=== PATIENT | male | born 1985 | race Caucasian/White ===

== ENCOUNTER 2019-05-15 14:51 | Inpatient (IN) | payer OTHER ==
[2019-05-15 15:28] VITALS: BMI 23.6
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
[2019-05-15] MEDS ORDERED: MAGNESIUM CITRATE 300 ML BOTTLE PO PRN (16:11)
[2019-05-15] MEDS ORDERED: hydrOXYzine PAMOATE 25 MG CAPSULE (FP) PO PRN (16:11)
[2019-05-15] MEDS ORDERED: METHOCARBAMOL 500 MG TABLET PO PRN (16:11)
[2019-05-15] MEDS ORDERED: chlordiazePOXIDE HCL 25 MG CAPSULE PO PRN (16:11)
[2019-05-15] MEDS ORDERED: IBUPROFEN 400 MG TABLET (FP) PO PRN (16:11)
[2019-05-15] MEDS ORDERED: MAGNESIUM HYDROX 2400MG/30ML ORAL SUSPENSION 30 ML CUP PO PRN (16:11)
[2019-05-15] MEDS ORDERED: MAG HYDROX/AL HYDROX/SIMETH 30 ML UNIT-DOSE CUP PO PRN (16:11)
[2019-05-15] MEDS ORDERED: cloNIDine HCL 0.1 MG TABLET PO PRN (16:11)
[2019-05-15] MEDS ORDERED: ACETAMINOPHEN 325 MG TABLET (FP) PO PRN ×2 (16:11)
[2019-05-15] MEDS ORDERED: BISMUTH SUBSALICYLATE 524 MG/30 ML UD PO PRN (16:11)
[2019-05-15] MEDS ORDERED: METHADONE HCL 10 MG TABLET (FOR DETOX USE ONLY) PO ONE (16:45)
[2019-05-15] MEDS: THIAMINE HCL 100 MG TABLET (FP) PO SCH (22:48)
[2019-05-15] MEDS: chlordiazePOXIDE HCL 25 MG CAPSULE PO SCH (22:48)
[2019-05-15] MEDS: levETIRAcetam 500 MG TABLET (FP) PO SCH (22:48)
[2019-05-15] MEDS: PHENYTOIN NA EXTENDED 100 MG CAPSULE (FP) PO SCH (22:48)
[2019-05-15] MEDS: AMOXICILLIN 500 MG CAPSULE (FP) PO SCH (22:53)
[2019-05-16] MEDS: chlordiazePOXIDE HCL 25 MG CAPSULE PO SCH ×4 (05:54→22:26)
[2019-05-16] MEDS: AMOXICILLIN 500 MG CAPSULE (FP) PO SCH ×3 (07:27→22:26)
[2019-05-16] MEDS: guaiFENesin 200 MG/10 ML 10 ML UNIT-DOSE CUPS PO PRN ×2 (07:30→17:53)
[2019-05-16] MEDS ORDERED: METHADONE HCL 5 MG TABLET (FOR DETOX USE ONLY) ONE (08:47)
[2019-05-16] MEDS ORDERED: METHADONE HCL 10 MG TABLET (FOR DETOX USE ONLY) ONE (08:47)
[2019-05-16 09:53] LABS: HEMATOCRIT 41.8 % (35.4-49); HEMOGLOBIN 13.3 GM/dL (11.7-16.9); MCH 28.7 pg (25.7-33.7); MCHC 31.9 g/dl (32.0-35.9); MEAN CELL VOLUME 90.2 fl (80-96); MEAN PLT VOLUME 11.2 fl (7.5-11.1); PLATELET COUNT 183 K/MM3 (134-434); RBC 4.63 M/mm3 (4.00-5.60); WHITE BLOOD COUNT 6.9 K/mm3 (4.0-10.0)
[2019-05-16] MEDS ORDERED: METHADONE (DETOX) 20 MG, METHADONE (DETOX) 5 MG PO ONE (10:00)
[2019-05-16 10:11] LABS: ALBUMIN 3.2 g/dl (3.4-5.0); BILIRUBIN,TOTAL 0.3 mg/dL (0.2-1); BLOOD UREA NITROGEN 12.8 mg/dL (7-18); CALCIUM 9.2 mg/dL (8.5-10.1); POTASSIUM 3.9 mmol/L (3.5-5.1); TOT PROT 6.4 g/dl (6.4-8.2)
[2019-05-16] MEDS: PRENATAL VITAMINS W/ FOLIC ACID TABLET (FP) PO SCH (10:23)
[2019-05-16] MEDS: PHENYTOIN NA EXTENDED 100 MG CAPSULE (FP) PO SCH ×2 (10:24→22:26)
[2019-05-16] MEDS: levETIRAcetam 500 MG TABLET (FP) PO SCH ×2 (10:24→22:26)
--- NOTE | 2019-05-16 12:21 | PN ---
[facility] CIWA - CIWA Score Nausea/Vomitin-Mild Nausea/No Vomiting Muscle Tremors: 3 Anxiety: 3 Agitation: 2 Paroxysmal Sweats: 1-Minimal Palms Moist Orientation: 0-Oriented Tacttile Disturbances: 1-Very Mild Itch/Numbness Auditory Disturbances: 0-None Visual Disturbances: 0-None Headache: 1-Very Mild CIWA-Ar Total Score: 12 BHS COWS - Scale Resting Pulse: 0= [place] 80 or Below Sweatin= Chills/Flushing Restless Observation: 0= Sits Still Pupil Size: 0= Normal to Room Light Bone or Joint Aches: 2= Severe Diffuse Aches Runny Nose/ Eye Tearin= Nasal Congestion GI Upset > 30mins: 2= Nausea/Diarrhea (no diarrhea) Tremor Observation of Outstretched Hands: 2= Slight Tremor Visible Yawning Observation: 2= >3x During Session Anxiety or Irritability: 2=Irritable/Anxious Goose Flesh Skin: 0=Smooth Skin COWS Score: 12 [facility] Progress Note (SOAP) Subjective: 34 years old male admitted on 05/15/19 for alcohol and opiate withdrawal sx management treated with librium and methadone detox regimen history of seizure treated wth keppra and dilantin dilantin serum level within acceptable range c/o tooth crack left lower tooth crack no bleeding mild gum swelling continue amoxicillin lidocain oral solution discuss oral hygiene Objective: 05/16/19 12:43 Vital Signs Temperature 96.6 F L 05/16/19 09:19 Pulse Rate 76 05/16/19 09:19 Respiratory Rate 16 05/16/19 09:19 Blood Pressure 106/64 05/16/19 09:19 O2 Sat by Pulse Oximetry (%) Laboratory Last Values WBC 6.9 K/mm3 (4.0-10.0) 05/16/19 08:20 RBC 4.63 M/mm3 (4.00-5.60) 05/16/19 08:20 Hgb 13.3 GM/dL (11.7-16.9) 05/16/19 08:20 Hct 41.8 % (35.4-49) 05/16/19 08:20 MCV 90.2 fl (80-96) 05/16/19 08:20 MCH 28.7 pg (25.7-33.7) 05/16/19 08:20 MCHC 31.9 g/dl (32.0-35.9) L 05/16/19 08:20 RDW 15.0 % (11.9-15.9) 05/16/19 08:20 Plt Count 183 K/MM3 (134-434) 05/16/19 08:20 MPV 11.2 fl (7.5-11.1) H D 05/16/19 08:20 Sodium 139 mmol/L (136-145) 05/16/19 08:20 Potassium 3.9 mmol/L (3.5-5.1) 05/16/19 08:20 Chloride 105 mmol/L (98-107) 05/16/19 08:20 Carbon Dioxide 28 mmol/L (21-32) 05/16/19 08:20 Anion Gap 7 MMOL/L (8-16) L 05/16/19 08:20 BUN 12.8 mg/dL (7-18) 05/16/19 08:20 Creatinine 1.0 mg/dL (0.55-1.3) 05/16/19 08:20 Est GFR (CKD-EPI)AfAm 114.91 05/16/19 08:20 Est GFR (CKD-EPI)NonAf 99.15 05/16/19 08:20 POC Glucometer 107 UNITS (80-120) 05/16/19 05:56 Random Glucose 95 mg/dL (74-106) 05/16/19 08:20 Calcium 9.2 mg/dL (8.5-10.1) 05/16/19 08:20 Total Bilirubin 0.3 mg/dL (0.2-1) 05/16/19 08:20 AST 24 U/L (15-37) 05/16/19 08:20 ALT 48 U/L (13-61) 05/16/19 08:20 Alkaline Phosphatase 70 U/L (45-117) 05/16/19 08:20 Total Protein 6.4 g/dl (6.4-8.2) 05/16/19 08:20 Albumin 3.2 g/dl (3.4-5.0) L 05/16/19 08:20 Phenytoin 0.6 05/16/19 08:20 RPR Titer Nonreactive (NONREACTIVE) 05/16/19 08:20 lab noted Assessment: 05/16/19 12:43 alcohol and opiate withdrawal sx Plan: continue librium and methadone detox regimen
[2019-05-16] MEDS ORDERED: LIDOCAINE VISCOUS 2% ORAL/TOP 20 ML UNIT-DOSE CUP MM PRN (12:40)
[2019-05-16] MEDS: MENTHOL/PHENOL 1 EACH UD MM PRN (17:54)
[2019-05-16] MEDS: THIAMINE HCL 100 MG TABLET (FP) PO SCH (22:26)
[2019-05-17] MEDS: chlordiazePOXIDE HCL 25 MG CAPSULE PO SCH ×4 (05:41→23:16)
[2019-05-17] MEDS: AMOXICILLIN 500 MG CAPSULE (FP) PO SCH ×3 (05:42→23:16)
[2019-05-17] MEDS ORDERED: METHADONE HCL 10 MG TABLET (FOR DETOX USE ONLY) PO ONE (10:00)
[2019-05-17] MEDS: PRENATAL VITAMINS W/ FOLIC ACID TABLET (FP) PO SCH (10:34)
[2019-05-17] MEDS: PHENYTOIN NA EXTENDED 100 MG CAPSULE (FP) PO SCH ×2 (10:34→23:16)
[2019-05-17] MEDS: levETIRAcetam 500 MG TABLET (FP) PO SCH ×2 (10:34→23:16)
[2019-05-17] MEDS: guaiFENesin 200 MG/10 ML 10 ML UNIT-DOSE CUPS PO PRN (10:36)
--- NOTE | 2019-05-17 13:18 | PN ---
[facility] CIWA - CIWA Score Nausea/Vomitin-Mild Nausea/No Vomiting Muscle Tremors: 2 Anxiety: 2 Agitation: 2 Paroxysmal Sweats: 2 Orientation: 1-Uncertain about Date Tacttile Disturbances: 0-None Auditory Disturbances: 0-None Visual Disturbances: 0-None Headache: 0-None Present CIWA-Ar Total Score: 10 BHS COWS - Scale Resting Pulse: 0= [place] 80 or Below Sweatin= Chills/Flushing Restless Observation: 0= Sits Still Pupil Size: 0= Normal to Room Light Bone or Joint Aches: 1= Mild Discomfort Runny Nose/ Eye Tearin= Nasal Congestion GI Upset > 30mins: 2= Nausea/Diarrhea (no diarrhea) Tremor Observation of Outstretched Hands: 2= Slight Tremor Visible Yawning Observation: 1= 1-2x During Session Anxiety or Irritability: 2=Irritable/Anxious Goose Flesh Skin: 0=Smooth Skin COWS Score: 10 [facility] Progress Note (SOAP) Subjective: 34 years old male admitted on 05/15/19 for alcohol and opiate withdrawal sx management treated with librium and methadone detox regimen less tooth ache continue amoxicilline no trouble chewing food nor swallowing food Objective: 05/17/19 13:16 Vital Signs Temperature 97.2 F L 05/17/19 09:14 Pulse Rate 69 05/17/19 09:14 Respiratory Rate 18 05/17/19 09:14 Blood Pressure 103/57 L 05/17/19 09:14 O2 Sat by Pulse Oximetry (%) Laboratory Last Values WBC 6.9 K/mm3 (4.0-10.0) 05/16/19 08:20 RBC 4.63 M/mm3 (4.00-5.60) 05/16/19 08:20 Hgb 13.3 GM/dL (11.7-16.9) 05/16/19 08:20 Hct 41.8 % (35.4-49) 05/16/19 08:20 MCV 90.2 fl (80-96) 05/16/19 08:20 MCH 28.7 pg (25.7-33.7) 05/16/19 08:20 MCHC 31.9 g/dl (32.0-35.9) L 05/16/19 08:20 RDW 15.0 % (11.9-15.9) 05/16/19 08:20 Plt Count 183 K/MM3 (134-434) 05/16/19 08:20 MPV 11.2 fl (7.5-11.1) H D 05/16/19 08:20 Sodium 139 mmol/L (136-145) 05/16/19 08:20 Potassium 3.9 mmol/L (3.5-5.1) 05/16/19 08:20 Chloride 105 mmol/L (98-107) 05/16/19 08:20 Carbon Dioxide 28 mmol/L (21-32) 05/16/19 08:20 Anion Gap 7 MMOL/L (8-16) L 05/16/19 08:20 BUN 12.8 mg/dL (7-18) 05/16/19 08:20 Creatinine 1.0 mg/dL (0.55-1.3) 05/16/19 08:20 Est GFR (CKD-EPI)AfAm 114.91 05/16/19 08:20 Est GFR (CKD-EPI)NonAf 99.15 05/16/19 08:20 POC Glucometer 110 UNITS (80-120) 05/16/19 16:37 Random Glucose 95 mg/dL (74-106) 05/16/19 08:20 Calcium 9.2 mg/dL (8.5-10.1) 05/16/19 08:20 Total Bilirubin 0.3 mg/dL (0.2-1) 05/16/19 08:20 AST 24 U/L (15-37) 05/16/19 08:20 ALT 48 U/L (13-61) 05/16/19 08:20 Alkaline Phosphatase 70 U/L (45-117) 05/16/19 08:20 Total Protein 6.4 g/dl (6.4-8.2) 05/16/19 08:20 Albumin 3.2 g/dl (3.4-5.0) L 05/16/19 08:20 Phenytoin 0.6 05/16/19 08:20 RPR Titer Nonreactive (NONREACTIVE) 05/16/19 08:20 lab noted Assessment: 05/17/19 13:17 alcohol and opiate withdrawal sx Plan: continue librium and methadone detox regimen
[2019-05-17] MEDS: THIAMINE HCL 100 MG TABLET (FP) PO SCH (23:16)
[2019-05-17] MEDS: MELATONIN 5 MG TABLETS PO PRN (23:18)
[2019-05-18] MEDS ORDERED: chlordiazePOXIDE HCL 10 MG CAPSULE PO PRN
[2019-05-18] MEDS: guaiFENesin 200 MG/10 ML 10 ML UNIT-DOSE CUPS PO PRN (05:58)
[2019-05-18] MEDS: chlordiazePOXIDE HCL 10 MG CAPSULE PO SCH ×4 (05:58→22:33)
[2019-05-18] MEDS: AMOXICILLIN 500 MG CAPSULE (FP) PO SCH ×3 (05:58→22:33)
[2019-05-18] MEDS ORDERED: METHADONE (DETOX) 10 MG, METHADONE (DETOX) 5 MG PO ONE (10:00)
[2019-05-18] MEDS ORDERED: METHADONE HCL 5 MG TABLET (FOR DETOX USE ONLY) ONE (10:01)
[2019-05-18] MEDS ORDERED: METHADONE HCL 10 MG TABLET (FOR DETOX USE ONLY) ONE (10:01)
[2019-05-18] MEDS: levETIRAcetam 500 MG TABLET (FP) PO SCH ×2 (10:18→22:33)
[2019-05-18] MEDS: PRENATAL VITAMINS W/ FOLIC ACID TABLET (FP) PO SCH (10:19)
[2019-05-18] MEDS: PHENYTOIN NA EXTENDED 100 MG CAPSULE (FP) PO SCH ×2 (10:19→22:33)
[2019-05-18] MEDS: MENTHOL/PHENOL 1 EACH UD MM PRN (10:21)
--- NOTE | 2019-05-18 12:29 | PN ---
S CIWA - CIWA Score Nausea/Vomitin-No Nausea/No Vomiting Muscle Tremors: 2 Anxiety: 2 Agitation: 2 Paroxysmal Sweats: No Perspiration Orientation: 0-Oriented Tacttile Disturbances: 0-None Auditory Disturbances: 0-None Visual Disturbances: 0-None Headache: 0-None Present CIWA-Ar Total Score: 6 BHS COWS - Scale Resting Pulse: 1= [place] 81-100 Sweatin= Chills/Flushing Restless Observation: 0= Sits Still Pupil Size: 0= Normal to Room Light Bone or Joint Aches: 1= Mild Discomfort Runny Nose/ Eye Tearin= None GI Upset > 30mins: 1= Stomach Cramp Tremor Observation of Outstretched Hands: 1= Tremor [place], Not Seen Yawning Observation: 0= None Anxiety or Irritability: 1=Feels Anxious/Irritable Goose Flesh Skin: 0=Smooth Skin COWS Score: 6 S Progress Note (SOAP) Subjective: 34 years old male admitted on 05/15/19 for alcohol and opiate withdrawal sx management treated with librium and methadone detox regimen long history of seizure treated with dilantin and keppra dilantin level within acceptable level Objective: 05/18/19 12:28 Vital Signs Temperature 97.5 F L 05/18/19 09:10 Pulse Rate 83 05/18/19 09:10 Respiratory Rate 18 05/18/19 09:10 Blood Pressure 101/56 L 05/18/19 09:10 O2 Sat by Pulse Oximetry (%) Laboratory Last Values WBC 6.9 K/mm3 (4.0-10.0) 05/16/19 08:20 RBC 4.63 M/mm3 (4.00-5.60) 05/16/19 08:20 Hgb 13.3 GM/dL (11.7-16.9) 05/16/19 08:20 Hct 41.8 % (35.4-49) 05/16/19 08:20 MCV 90.2 fl (80-96) 05/16/19 08:20 MCH 28.7 pg (25.7-33.7) 05/16/19 08:20 MCHC 31.9 g/dl (32.0-35.9) L 05/16/19 08:20 RDW 15.0 % (11.9-15.9) 05/16/19 08:20 Plt Count 183 K/MM3 (134-434) 05/16/19 08:20 MPV 11.2 fl (7.5-11.1) H D 05/16/19 08:20 Sodium 139 mmol/L (136-145) 05/16/19 08:20 Potassium 3.9 mmol/L (3.5-5.1) 05/16/19 08:20 Chloride 105 mmol/L (98-107) 05/16/19 08:20 Carbon Dioxide 28 mmol/L (21-32) 05/16/19 08:20 Anion Gap 7 MMOL/L (8-16) L 05/16/19 08:20 BUN 12.8 mg/dL (7-18) 05/16/19 08:20 Creatinine 1.0 mg/dL (0.55-1.3) 05/16/19 08:20 Est GFR (CKD-EPI)AfAm 114.91 05/16/19 08:20 Est GFR (CKD-EPI)NonAf 99.15 05/16/19 08:20 POC Glucometer 111 UNITS (80-120) 05/18/19 06:35 Random Glucose 95 mg/dL (74-106) 05/16/19 08:20 Calcium 9.2 mg/dL (8.5-10.1) 05/16/19 08:20 Total Bilirubin 0.3 mg/dL (0.2-1) 05/16/19 08:20 AST 24 U/L (15-37) 05/16/19 08:20 ALT 48 U/L (13-61) 05/16/19 08:20 Alkaline Phosphatase 70 U/L (45-117) 05/16/19 08:20 Total Protein 6.4 g/dl (6.4-8.2) 05/16/19 08:20 Albumin 3.2 g/dl (3.4-5.0) L 05/16/19 08:20 Phenytoin 0.6 05/16/19 08:20 Levetiracetam 4.9 MCG/ML (10.0-40.0) L 05/16/19 08:20 RPR Titer Nonreactive (NONREACTIVE) 05/16/19 08:20 lab noted Assessment: 05/18/19 12:28 alcohol and opiate withdrawal sx Plan: continue librium and methadone detox regimen
[2019-05-18] MEDS: THIAMINE HCL 100 MG TABLET (FP) PO SCH (22:33)
[2019-05-18] MEDS: MELATONIN 5 MG TABLETS PO PRN (22:34)
[2019-05-19] MEDS ORDERED: chlordiazePOXIDE HCL 10 MG CAPSULE PO SCH (05:00)
[2019-05-19] MEDS: AMOXICILLIN 500 MG CAPSULE (FP) PO SCH (05:54)
[2019-05-19 09:20] VITALS: BP 95/59; PULSE 84; TEMP 97.3
[2019-05-19] MEDS ORDERED: METHADONE HCL 10 MG TABLET (FOR DETOX USE ONLY) PO ONE (10:00)
[2019-05-19] MEDS: PHENYTOIN NA EXTENDED 100 MG CAPSULE (FP) PO SCH (10:10)
[2019-05-19] MEDS: PRENATAL VITAMINS W/ FOLIC ACID TABLET (FP) PO SCH (10:10)
[2019-05-19] MEDS: levETIRAcetam 500 MG TABLET (FP) PO SCH (10:11)
--- NOTE | 2019-05-19 12:28 | DS ---
[facility] Detox Discharge Summary Admission Date: 05/15/19 Discharge Date: 05/19/19 - History Present History: Alcohol Dependence, Opioid Dependence Additional Comments: 34 years old male admitted on 05/15/19 for alcohol and opiate withdrawal sx management treated with librium and methadone detox regimen patient tolerate well patient is alert oriented x 3 cardiac S1S2 regular rate rhythm respiratory clear lung bilaterally on auscultation abdomen soft no rebound tenderness - Physical Exam Results Vital Signs: Vital Signs Temperature 97.3 F L 05/19/19 09:19 Pulse Rate 84 05/19/19 09:19 Respiratory Rate 16 05/19/19 09:19 Blood Pressure 95/59 L 05/19/19 09:19 O2 Sat by Pulse Oximetry (%) Pertinent Admission Physical Exam Findings: alcohol and opiate withdrawal sx Laboratory Last Values WBC 6.9 K/mm3 (4.0-10.0) 05/16/19 08:20 RBC 4.63 M/mm3 (4.00-5.60) 05/16/19 08:20 Hgb 13.3 GM/dL (11.7-16.9) 05/16/19 08:20 Hct 41.8 % (35.4-49) 05/16/19 08:20 MCV 90.2 fl (80-96) 05/16/19 08:20 MCH 28.7 pg (25.7-33.7) 05/16/19 08:20 MCHC 31.9 g/dl (32.0-35.9) L 05/16/19 08:20 RDW 15.0 % (11.9-15.9) 05/16/19 08:20 Plt Count 183 K/MM3 (134-434) 05/16/19 08:20 MPV 11.2 fl (7.5-11.1) H D 05/16/19 08:20 Sodium 139 mmol/L (136-145) 05/16/19 08:20 Potassium 3.9 mmol/L (3.5-5.1) 05/16/19 08:20 Chloride 105 mmol/L (98-107) 05/16/19 08:20 Carbon Dioxide 28 mmol/L (21-32) 05/16/19 08:20 Anion Gap 7 MMOL/L (8-16) L 05/16/19 08:20 BUN 12.8 mg/dL (7-18) 05/16/19 08:20 Creatinine 1.0 mg/dL (0.55-1.3) 05/16/19 08:20 Est GFR (CKD-EPI)AfAm 114.91 05/16/19 08:20 Est GFR (CKD-EPI)NonAf 99.15 05/16/19 08:20 POC Glucometer 99 UNITS (80-120) 05/18/19 16:22 Random Glucose 95 mg/dL (74-106) 05/16/19 08:20 Calcium 9.2 mg/dL (8.5-10.1) 05/16/19 08:20 Total Bilirubin 0.3 mg/dL (0.2-1) 05/16/19 08:20 AST 24 U/L (15-37) 05/16/19 08:20 ALT 48 U/L (13-61) 05/16/19 08:20 Alkaline Phosphatase 70 U/L (45-117) 05/16/19 08:20 Total Protein 6.4 g/dl (6.4-8.2) 05/16/19 08:20 Albumin 3.2 g/dl (3.4-5.0) L 05/16/19 08:20 Phenytoin 0.6 05/16/19 08:20 Levetiracetam 4.9 MCG/ML (10.0-40.0) L 05/16/19 08:20 RPR Titer Nonreactive (NONREACTIVE) 05/16/19 08:20 lab noted - Treatment Hospital Course: Detox Protocol Followed, Detoxed Safely, Responded well, Discharged Condition Good, Rehab Referral Accepted Patient has Accepted a Rehab Referral to: medication assisted treatment program - Medication Discharge Medications: Ambulatory Orders Lamotrigine [Lamictal] 25 mg PO DAILY 03/01/18 Gabapentin 300 mg PO TID 03/04/18 Quetiapine Fumarate [Seroquel -] 100 mg PO HS #30 tablet 03/05/18 traZODone HCL [Desyrel -] 100 mg PO HS #30 tablet 03/05/18 Naloxone HCl [Narcan] 4 mg NS ASDIR PRN #1 spray 05/16/19 Phenytoin Na Extended [Dilantin -] 100 mg PO BID #60 capsule 05/19/19 levETIRAcetam [Keppra -] 500 mg PO BID #60 tablet 05/19/19 - Diagnosis (1) DM type 2 (diabetes mellitus, type 2) Status: Chronic Qualifiers: Diabetes mellitus joint terminal attack controller insulin use: unspecified senior living insulin use status Diabetes mellitus complication status: without complication Qualified Code(s): E11.9 - Type 2 diabetes mellitus without complications (2) Nicotine dependence with withdrawal Status: Acute Qualifiers: Nicotine product type: cigarettes Qualified Code(s): F17.213 - Nicotine dependence, cigarettes, with withdrawal (3) Alcohol dependence with uncomplicated withdrawal Status: Acute (4) Opioid dependence with withdrawal Status: Acute - AMA Did Patient Leave Against Medical Advice: No CIWA Score - CIWA Score Nausea/Vomitin-No Nausea/No Vomiting Muscle Tremors: 1-None Visible, but [place] Anxiety: 1-Mildly Anxious Agitation: 1-Slight > Activity Paroxysmal Sweats: No Perspiration Orientation: 0-Oriented Tacttile Disturbances: 0-None Auditory Disturbances: 0-None Visual Disturbances: 0-None Headache: 0-None Present CIWA-Ar Total Score: 3 COWS (PN) - Opiate Withdrawal Resting Pulse: 1= [place] 81-100 Sweatin= Chills/Flushing Restless Observation: 0= Sits Still Pupil Size: 0= Normal to Room Light Bone or Joint Aches: 0= None Runny Nose/ Eye Tearin= None GI Upset > 30mins: 0= None Tremor Observation of Outstretched Hands: 1= Tremor [place], Not Seen Yawning Observation: 0= None Anxiety or Irritability: 1=Feels Anxious/Irritable Goose Flesh Skin: 0=Smooth Skin COWS Score: 4
--- NOTE | 2019-05-19 13:08 | HP ---
[facility] Rehab Assess/Revision - Admission History Admitted to Rehab from: [facility] Date of Admission to Rehab: 05/19/19 - Vital signs Vital Signs: Vital Signs Period Temp Pulse Resp BP Sys/Lopez Pulse Ox Last 24 Hr 97 F-98.5 F 66-90 16-18 95-128/57-82 - Findings Detox History & Physical reviewed: Yes Concur with findings: Yes Comments/Additional Findings: trasnferred from detox to rehab admission as per protocol Inpatient Rehab Admission - Rehab Decision to Admit Inpatient rehab admission?: Yes - Initial Determination Are CD services needed?: Yes Free of communicable disease: Yes Not in need of hospitalization: Yes - Rehab Admission Criteria Previous failed treatment: Yes Poor recovery environment: Yes Comorbidities: Yes Lacks judgement: Yes Patient is meeting Inpatient Rehab admission criteria:: Yes
[2019-05-20] MEDS ORDERED: chlordiazePOXIDE HCL 10 MG CAPSULE PO ONE (05:00)
[2019-05-20] MEDS ORDERED: METHADONE HCL 5 MG TABLET (FOR DETOX USE ONLY) PO ONE (06:00)
== END 2019-05-19 11:47 | disposition home or self-care (01) | DRG 897 ==
LOC: YASAS 14:51 → Y3N 16:36
PROVIDERS: ADMIT Allergy & Immunology; ATTEND Allergy & Immunology
PROC: HZ2ZZZZ Detoxification Services for Substance Abuse Treatment (ICD-10-PCS; principal; 2019-05-15)
DX: F10.230 Alcohol dependence with withdrawal, uncomplicated (principal); F14.20 Cocaine dependence, uncomplicated; F11.23 Opioid dependence with withdrawal; F17.213 Nicotine dependence, cigarettes, with withdrawal; E11.9 Type 2 diabetes mellitus without complications; Z79.4 Long term (current) use of insulin; G40.909 Epilepsy, unspecified, not intractable, without status epilepticus; G47.00 Insomnia, unspecified; J20.9 Acute bronchitis, unspecified; B18.2 Chronic viral hepatitis C; R63.4 Abnormal weight loss; Z68.23 Body mass index [BMI] 23.0-23.9, adult; Z91.5 Personal history of self-harm; Z59.0 Homelessness
CPT/HCPCS: 36415; 80053; 80177; 80185; 82962; 85027; 86593; J0735